=== PATIENT | female | born 1995 | race Caucasian/White ===

== ENCOUNTER → 2024-12-04 07:05 | Outpatient (REF) | payer BC, SELFPAY | LOC: PNTC 07:05 | PROVIDERS: ATTENDING PHYSICIAN Obstetrics & Gynecology | DX: O99.210 Obesity complicating pregnancy, unspecified trimester (principal) | CPT/HCPCS: 76805 ==

== ENCOUNTER → 2025-01-01 09:30 | Outpatient (REF) | payer BC, SELFPAY | LOC: PNTC 09:30 | PROVIDERS: ATTENDING PHYSICIAN Obstetrics & Gynecology | DX: O99.210 Obesity complicating pregnancy, unspecified trimester (principal); O34.211 Maternal care for low transverse scar from previous cesarean delivery | CPT/HCPCS: 76811; 76817; 93976 ==

== ENCOUNTER → 2025-02-19 11:36 | Outpatient (REF) | payer BC, SELFPAY | LOC: PNTC 11:36 | PROVIDERS: ATTENDING PHYSICIAN Obstetrics & Gynecology | DX: O99.212 Obesity complicating pregnancy, second trimester (principal) | CPT/HCPCS: 76816 ==

== ENCOUNTER 2025-03-16 15:45 | Observation (INO) | payer BC, SELFPAY ==
[2025-03-16 16:00] VITALS: BP 121/67; BMI 35.9
[2025-03-16 16:15] LABS: % Basophils 0.2 % (0-2); % Eosinophils 0.8 % (0-6); % Immature Granulocytes 0.5 % (0-0.5); % Lymphocytes 15.3 % (20.5-51.1); % Monocytes 5.8 % (1.7-9.3); % Neutrophils 77.4 % (42.2-75.2); Absolute Eosinophils 0.1 10^3/uL (0-0.7); Absolute Immature Granulocytes 0.1 10^3/uL (0-0.05); Absolute Monocytes 0.8 10^3/uL (0.1-0.6); Hematocrit 31.8 % (37.0-47.0); Mean Corp Hgb Conc. 34.6 g/dL (33.0-37.0); Mean Corpuscular Hgb 31.3 pg (27.0-31.0); Mean Corpuscular Volume 90.6 fL (81.0-99.0); Nucleated Red Blood Cells % 0 %; Platelet Count 315 10^3/uL (130-400); Red Blood Cell Count 3.51 10^6/uL (4.20-5.40); Red Cell Dist. Width 13.2 % (11.5-14.5); White Blood Cell Count 12.9 10^3/uL (4.8-10.8)
[2025-03-16 16:23] LABS: Urine Albumin Negative (Neg - Trace); Urine Bilirubin Negative (Negative); Urine Character Clear (Clear); Urine Glucose Negative (Negative); Urine Ketone Negative (Negative); Urine Nitrite Negative (Negative); Urine Occult Blood Negative (Negative); Urine Specific Gravity 1.005 (<1.030); Urine Urobilinogen Negative (Neg - 1+)
[2025-03-16 16:27] LABS: Urine Color Straw; Urine Leukocyte Negative (Negative)
[2025-03-16 16:28] LABS: ALT (SGPT) 11 U/L (0-35); AST (SGOT) 14 U/L (14-36); Albumin 3.6 g/dl (3.5-5.0); Alkaline Phosphatase 72 U/L (38-126); Blood Urea Nitrogen 8 mg/dl (7-17); Calcium 8.6 mg/dl (8.4-10.2); Carbon Dioxide 19 mmol/L (22-30); Chloride 111 mmol/L (98-107); Estimated Creatinine Clearance > 125 ml/min; Glucose 87 mg/dl (70-99); Potassium 4.2 mmol/L (3.5-5.1); Sodium 134 mmol/L (135-145); Total Bilirubin 0.4 mg/dl (0.2-1.3); Total Protein 6.5 g/dl (6.3-8.2); eGFR > 60.00
[2025-03-16 16:39] LABS: Protein/creatinine Ratio 1.6; Urine Protein 15 mg/dl
[2025-03-16] MEDS: MAXALT MLT (ORALLY DISINTEGRATING) 10 MG PO (18:17)
== END 2025-03-16 19:37 | disposition home or self-care (01) ==
LOC: LDRP 15:45
PROVIDERS: ADMITTING PHYSICIAN Obstetrics & Gynecology; FAMILY PHYSICIAN Family Medicine
DX: O26.893 Other specified pregnancy related conditions, third trimester (principal); H53.8 Other visual disturbances; Z3A.30 30 weeks gestation of pregnancy; R51.9 Headache, unspecified
CPT/HCPCS: 80053; 81003; 82570; 84156; 84550; 85025; 86850; 86900; 86901; G0378

== ENCOUNTER → 2025-03-26 11:27 | Outpatient (REF) | payer BC, SELFPAY | LOC: PNTC 11:27 | PROVIDERS: ATTENDING PHYSICIAN Obstetrics & Gynecology | DX: O99.213 Obesity complicating pregnancy, third trimester (principal) | CPT/HCPCS: 76816 ==

== ENCOUNTER → 2025-03-26 15:03 | Outpatient (REF) | payer BC, SELFPAY ==
--- NOTE | 2025-03-26 08:37 | PN.DIAED06 ---
Meal Plan - Gestational
- Breakfast
Gestational Diabetes Meal Plan Name: 1800 calories
Breakfast - Total Carbohydrate (grams): 30 (1 carb = 15 grams)
Breakfast - Starch Carbohydrate: 1 (carbs: starch, fruit, milk)
Breakfast - Fruit Carbohydrate: 0 (no fruit or juice before noon)
Breakfast - Milk Carbohydrate: 1
Breakfast - Nonstarchy Vegetables: Yes
Breakfast - Meat/Protein: 1 (1 protein serving = 1 oz = 7 grams)
Breakfast - Fat: 2 (1 fat serving = 5 grams)
- Morning Snack
Morning Snack - Total Carbohydrate (grams): 30 (2 carb choices)
Morning Snack - Starch Carbohydrate: 1
Morning Snack - Fruit Carbohydrate: 0 (no fruit or juice before noon)
Morning Snack - Milk Carbohydrate: 1
Morning Snack - Nonstarchy Vegetables: Yes
Morning Snack - Meat/Protein: 0.5
Morning Snack - Fat: 0
- Lunch
Lunch - Total Carbohydrate (grams): 45 (3 carb choices)
Lunch - Starch Carbohydrate: 2
Lunch - Fruit Carbohydrate: 1
Lunch - Milk Carbohydrate: 0
Lunch - Nonstarchy Vegetables: Yes
Lunch - Meat/Protein: 2
Lunch - Fat: 1
- Afternoon Snack
Afternoon Snack - Total Carbohydrate (grams): 30 (2 carb choices)
Afternoon Snack - Starch Carbohydrate: 1
Afternoon Snack - Fruit Carbohydrate: 1
Afternoon Snack - Milk Carbohydrate: 0
Afternoon Snack - Nonstarchy Vegetables: Yes
Afternoon Snack - Meat/Protein: 1
Afternoon Snack - Fat: 0
- Dinner
Dinner - Total Carbohydrate (grams): 45 (3 carb choices)
Dinner - Starch Carbohydrate: 2
Dinner - Fruit Carbohydrate: 0
Dinner - Milk Carbohydrate: 1
Dinner - Nonstarchy Vegetables: Yes
Dinner - Meat/Protein: 2
Dinner - Fat: 2
- Evening Snack
Evening Snack - Total Carbohydrate (grams): 30 (2 carb choices)
Evening Snack - Starch Carbohydrate: 1
Evening Snack - Fruit Carbohydrate: 0
Evening Snack - Milk Carbohydrate: 1
Evening Snack - Nonstarchy Vegetables: Yes
Evening Snack - Meat/Protein: 1
Evening Snack - Fat: 1
--- NOTE | 2025-03-26 14:38 | PN.DE ---
Diabetes Education
- -
03/26/2025 GESTATIONAL DIABETES EDUCATION CONSULT
I met with Salud and her today for medical nutrition therapy. She is currently at 30 weeks of gestation, with an Lorne 05/21/2025 and a scheduled on 05/14/2025.
Explained glucose metabolism in body and what occurs during to cause increase blood sugar. Discussed importance of keeping BS well controlled to avoid complications to the baby during and after (macrosomia, hypoglycemia).
Discussed macronutrients, provided with 1800 chinyere GDM meal plan.She is not currently exercising, I educated on importance of exercise in helping to lower glucose.
Salud presented to the appointment with a new Glucose monitor- [employer] Verio Flex with supplies. Reviewed proper testing technique, testing sites and testing pattern. She is aware to test FBS and 2 hr pp each meal. Expected results for FBS <95
mg/dl and 2 hr pp <120 mg/dl. Noted for blood sugar of 85 mg/dL 2 hours post prandial after breakfast this morning. Log sheet provided for her to record results, she will send a 4-day meal log with all her FBG and 2hr Post prandial glucose numbers
to this office for review. In addition, she will send all her glucose readings [facility] every Monday.
She was encouraged to reach out should she require insulin.
== END ==
LOC: DES 15:03
PROVIDERS: ATTENDING PHYSICIAN Obstetrics & Gynecology
DX: O24.419 Gestational diabetes mellitus in pregnancy, unspecified control (principal)
CPT/HCPCS: 99078

== ENCOUNTER → 2025-04-16 14:31 | Outpatient (REF) | payer BC, SELFPAY | LOC: PNTC 14:31 | PROVIDERS: ATTENDING PHYSICIAN Student in an Organized Health Care Education/Training Program | DX: O24.419 Gestational diabetes mellitus in pregnancy, unspecified control (principal); O99.210 Obesity complicating pregnancy, unspecified trimester | CPT/HCPCS: 59025; 76815 ==

== ENCOUNTER → 2025-04-22 11:30 | Outpatient (REF) | payer BC, SELFPAY | LOC: PNTC 11:30 | PROVIDERS: ATTENDING PHYSICIAN Student in an Organized Health Care Education/Training Program; OTHER PHYSICIAN Obstetrics & Gynecology | DX: O24.419 Gestational diabetes mellitus in pregnancy, unspecified control (principal) | CPT/HCPCS: 59025; 76816 ==

== ENCOUNTER → 2025-04-29 09:29 | Outpatient (REF) | payer BC, SELFPAY | LOC: PNTC 09:29 | PROVIDERS: ATTENDING PHYSICIAN Student in an Organized Health Care Education/Training Program | DX: O99.210 Obesity complicating pregnancy, unspecified trimester (principal); O24.419 Gestational diabetes mellitus in pregnancy, unspecified control | CPT/HCPCS: 59025; 76815 ==

== ENCOUNTER → 2025-05-06 09:27 | Outpatient (REF) | payer BC, SELFPAY | LOC: PNTC 09:27 | PROVIDERS: ATTENDING PHYSICIAN Student in an Organized Health Care Education/Training Program | DX: O99.210 Obesity complicating pregnancy, unspecified trimester (principal); O24.419 Gestational diabetes mellitus in pregnancy, unspecified control | CPT/HCPCS: 59025; 76815 ==

== ENCOUNTER → 2025-05-13 09:31 | Outpatient (REF) | payer BC, SELFPAY | LOC: PNTC 09:31 | PROVIDERS: ATTENDING PHYSICIAN Student in an Organized Health Care Education/Training Program | DX: O24.419 Gestational diabetes mellitus in pregnancy, unspecified control (principal); O99.210 Obesity complicating pregnancy, unspecified trimester | CPT/HCPCS: 59025; 76815 ==

== ENCOUNTER 2025-05-14 06:59 | Inpatient (IN) | payer BC, SELFPAY ==
[2025-05-14 07:49] LABS: Hematocrit 31.1 % (37.0-47.0); Hemoglobin 10.4 g/dL (12.0-16.0); Mean Corp Hgb Conc. 33.4 g/dL (33.0-37.0); Mean Corpuscular Volume 90.1 fL (81.0-99.0); Platelet Count 316 10^3/uL (130-400); Red Cell Dist. Width 13.2 % (11.5-14.5)
[2025-05-14 07:54] VITALS: BP 130/78; BMI 37.6
[2025-05-14] MEDS: LR 1000 IV ×2 (08:00→08:45)
[2025-05-14 08:04] LABS: ALT (SGPT) < 10 U/L (0-35); AST (SGOT) 14 U/L (14-36); Albumin 3.4 g/dl (3.5-5.0); Alkaline Phosphatase 127 U/L (38-126); Blood Urea Nitrogen 9 mg/dl (7-17); Calcium 8.6 mg/dl (8.4-10.2); Carbon Dioxide 19 mmol/L (22-30); Chloride 110 mmol/L (98-107); Estimated Creatinine Clearance > 125 ml/min; Glucose 85 mg/dl (70-99); Potassium 4.2 mmol/L (3.5-5.1); Sodium 135 mmol/L (135-145); Total Protein 6.3 g/dl (6.3-8.2); eGFR > 60.00
[2025-05-14] MEDS: GENTAMICIN 60 MG IV (11:02)
[2025-05-14] MEDS: BICITRA 30 ML PO (11:02)
[2025-05-14] MEDS: TYLENOL 975 MG PO (11:03)
[2025-05-14] MEDS: CLEOCIN 50 IV (11:03)
[2025-05-14] MEDS: TORADOL 15 MG IV ×2 (18:05→23:46)
[2025-05-14] MEDS: COLACE 100 MG PO (19:53)
--- NOTE | 2025-05-14 19:58 | OR.RPT ---
Operative Report
Operative Report
Procedure date: 05/14/2025
Preop diagnosis: IUP @39.0, GDMA1, Hx C/Sx1, declines TOLAC
Postop diagnosis: same
Procedure: Repeat low transverse section
Surgeon: Peter
Anesthesia: Spinal, Bharath
QBL: 220mL
Findings: viable male born at 1143 with nuchal x1, reduced, Apgars 8/9, normal appearing uterus, bilateral fallopian tubes and ovaries, uterine atony responded to methergine
Indications: Patient is a 30yo @39.0 who presents for scheduled repeat section. She has a history of one prior section and desired repeat section. She declined a trial of labor after section. Risks, benefits and
alternatives discussed and consents were previously signed in the office.
Procedure: Patient was taken to the operating room where spinal anesthesia was administered and found to be adequate. 900mg of Clindamycin and 5mg/kg of Gentamicin were given for antibiotic prophylaxis. The abdomen was prepped with ChloraPrep. The
patient was draped in the normal sterile fashion. She was placed in the dorsal supine position with a left lateral tilt. A Pfannenstiel incision was made with a 10 blade and carried down to the fascia with a scalpel. Hemostasis achieved with Bovie.
The fascia was incised and dissected laterally with Schulz scissors. The superior aspect of the fascia was grasped with Rosa clamps. The underlying rectus fascia was sharply dissected with Schulz scissors. In a similar fashion the inferior aspect of
the fascia was elevated with Rosa clamps and the rectus muscle was dissected off with Schulz scissors. The rectus muscles were down the midline to the level of the pubic symphysis with manual dissection. The peritoneum was bluntly entered
and extended using manual traction.
Zhang retractor and bladder blade were placed revealing good visualization of the bladder. The vesicouterine peritoneum was identified. A thin lower uterine segment was noted. The lower uterine segment was incised with a scalpel. Clear amniotic
fluid noted at entry. The uterine incision was extended bluntly with lateral and upward traction.
The fetus was in cephalic presentation. The head was elevated out of the pelvis with special attention paid to avoid using the uterine incision as a fulcrum. Gentle fundal pressure was applied once the head was brought to the incision. The head
delivered through the hysterotomy. There was a loose nuchal x1 that was reduced at the hysterotomy. The rest of the delivered without difficulty. Delayed cord clamping was performed. The infant was handed off to the residential concierge. IV oxytocin
was started to facilitate uterine contractions. The placenta was delivered with fundal massage and gentle downward traction. The uterus was exteriorized. Allis clamps were placed at the apices of the hysterotomy. The inside of the uterus was wiped
with a lap sponge to assure complete removal of placental membranes. Fundal massage was performed and uterus was boggy. Methergine was given with improvement in tone. The uterine incision was closed with 0 Vicryl in a running locked fashion. A
horizontal imbricating stitch was done on the hysterotomy with 0 Vicryl. The hysterotomy was inspected and there was oozing at the right corner. Figure of eights with 2-0 Vicryl were used to achieve hemostasis. Bovie cautery was used on small oozing
areas of the serosa. The uterus was placed back in the abdomen. Blood clots and fluid were wiped out of the abdomen and pelvis with moist laparotomy sponges. The hysterotomy was examined and was hemostatic.
The rectus muscles were inspected and were hemostatic. The fascial layer was closed in a running continuous fashion using 0 Vicryl. The subcutaneous tissue was copiously irrigated and any small bleeding vessels were cauterized with Bovie cautery.
The subcutaneous tissue was reapproximated in a running continuous fashion with 2-0 Plain with 2 layers. The skin was closed with 4-0 Vicryl in a subcuticular fashion and covered with skin glue. The patient tolerated the procedure well. All sponge
and instrument counts were correct times two. The patient was taken to the recovery room in stable condition. Ratliff catheter was draining clear urine at the end of the procedure.
[2025-05-14] MEDS: PRENATAL PLUS 1 TABLET PO (21:25)
[2025-05-15] MEDS: TORADOL 15 MG IV ×2 (05:46→11:57)
[2025-05-15 05:48] LABS: Hematocrit 26.5 % (37.0-47.0); Hemoglobin 9.0 g/dL (12.0-16.0); Mean Corp Hgb Conc. 34.0 g/dL (33.0-37.0); Mean Corpuscular Volume 89.8 fL (81.0-99.0); Platelet Count 289 10^3/uL (130-400); Red Cell Dist. Width 13.2 % (11.5-14.5)
--- NOTE | 2025-05-15 08:27 | W.PN.ANS.POP ---
Anesthesia Post Operative
- Anesthesia Post Op Note
Vital Signs Stable-See Nursing Note: Yes
Airway Patent: Yes
Adequate Pain Control: Yes
Change in Mental Status: No
Current Postoperative Nausea & Vomiting: No
Anesthesia Complications: No
General Anesthetic Recall: No
Unplanned Admission: No
Post Op Hydration Adequate: Yes
- -
Pt awake and alert, resting comfortably with no anesthesia related c/o at time of post op visit.
[2025-05-15] MEDS: MYLICON 80 MG PO (09:43)
[2025-05-15] MEDS: PRENATAL PLUS 1 TABLET PO (09:43)
[2025-05-15] MEDS: COLACE 100 MG PO ×2 (09:43→19:41)
[2025-05-15] MEDS: TYLENOL 650 MG PO (19:21)
[2025-05-15] MEDS: MOTRIN 600 MG PO (19:21)
[2025-05-15] MEDS: FEOSOL 325 MG PO (19:41)
[2025-05-16] MEDS: MOTRIN 600 MG PO ×4 (01:32→20:47)
[2025-05-16] MEDS: TYLENOL 650 MG PO ×4 (01:32→20:47)
[2025-05-16] MEDS: FEOSOL 325 MG PO (08:43)
[2025-05-16] MEDS: COLACE 100 MG PO ×2 (08:43→20:47)
[2025-05-16 13:55] LABS: Syphilis/T. pallidum Ab Reflex Negative (Negative)
[2025-05-17] MEDS: PRENATAL PLUS PO (03:22)
[2025-05-17] MEDS: TYLENOL 650 MG PO ×2 (04:24→08:48)
[2025-05-17] MEDS: MOTRIN 600 MG PO (04:24)
[2025-05-17] MEDS: PRENATAL PLUS 1 TABLET PO (08:48)
[2025-05-17] MEDS: COLACE 100 MG PO (08:48)
[2025-05-17] MEDS: FEOSOL 325 MG PO (08:49)
[2025-05-17] MEDS: M-M-R II 0.5 ML SC (09:29)
--- NOTE | 2025-05-19 05:08 | W.DS.TRANS ---
DC Summary - Electrical Project Engineer
-
Discharge Instructions:
Discharge Diagnosis/Procedures repeat section
Diet No restrictions
Activity No strenuous activity
Driving Restrictions No driving for 2 weeks
Bathing Restrictions OK to Shower
Instructions:
Stand-Alone Forms: LDRP Delivery
Changes to Home Medications: No
Discharge Medications:
DC Medications w/original date entered in [facility]
vit no.95-ferrous fumarate 28 mg-folic acid 800 mcg tablet () 1 ea PO HS Supplement 03/08/21
acetaminophen 325 mg tablet 650 mg (2 x 325 mg) PO Q4HPRN PRN mild pain #1 tab 05/17/25
ferrous sulfate 325 mg (65 mg iron) tablet (FeroSul) 325 mg PO BID #1 tab 05/17/25
ibuprofen 600 mg tablet 600 mg PO Q6HPRN PRN cramps #60 tabs 05/17/25
Home Medication Changes
Pending Results: No
--- NOTE | 2025-05-19 05:08 | W.DCSUMMARY ---
Discharge Summary
Discharge Data
Date of Admission: 05/14/25
Date of Discharge: 05/17/25
-
Pending Results: No
Hospital Course
Patient is a 30yo who presented at 39.0 weeks on 05/14 for scheduled repeat section. She has a history of one prior section for arrest of descent and desired repeat section. She declined a trial of labor after
section. She underwent repeat low transverse section on 05/14, delivering a viable male . The procedure was uncomplicated. The estimated blood loss was 220mL. On postop day one, she was doing well with no complaints. Her
hemoglobin was 9.0. She was asymptomatic for anemia. She was started on an iron supplementation. On postop day two, she continued to do well with no complaints. On postop day three, she was meeting all postop milestones. She was tolerating a regular
diet, voiding spontaneously, passing flatus, ambulating and had no heavy lochia. She was discharged home after discharge instructions and return precautions were discussed. She was instructed to follow up in 2 weeks for an incision check.
Discharge Plan
-
Patient Disposition: Home (Routine Discharge)
Discharge Diagnosis/Procedures: repeat section
Condition: Good
Diet: No restrictions
Activity: No strenuous activity
Driving Restrictions: No driving for 2 weeks
Bathing Restrictions: OK to Shower
Stand Alone Forms: LDRP Delivery
Referrals:
Sue Castro DO [Family Provider, Family Practice]
Claire Green DO [Active, Gynecology] - in two weeks
Prescriptions:
New
acetaminophen 325 mg Tablet
650 mg PO Q4HPRN PRN (Reason: mild pain) Qty: 1 0RF
ferrous sulfate [FeroSul] 325 mg (65 mg iron) Tablet
325 mg PO BID Qty: 1 0RF
ibuprofen 600 mg Tablet
600 mg PO Q6HPRN PRN (Reason: cramps) Qty: 60 0RF
Continued
PNV no.95-ferrous fumarate-FA [] 1 EACH tablet
1 ea PO HS
Discharge Orders:
Discharge Patient (As Directed); Ordered 05/17/25
Ordered By: Claire Green
Discharge Date and Time
Discharge Date/Time: 05/17/25 10:39
Print Language: GUATEMALAN
== END 2025-05-17 10:39 | disposition home or self-care (01) | DRG 787 ==
LOC: LDRP 06:59
PROVIDERS: ADMITTING PHYSICIAN Student in an Organized Health Care Education/Training Program; FAMILY PHYSICIAN Family Medicine
PROC: 4A1HXCZ Monitoring of Products of Conception, Cardiac Rate, External Approach (ICD-10-PCS; 2025-05-14)
PROC: 10D00Z1 Extraction of Products of Conception, Low, Open Approach (ICD-10-PCS; 2025-05-14)
PROC: 3E0134Z Introduction of Serum, Toxoid and Vaccine into Subcutaneous Tissue, Percutaneous Approach (ICD-10-PCS; 2025-05-17)
DX: O34.211 Maternal care for low transverse scar from previous cesarean delivery (principal); O99.354 Diseases of the nervous system complicating childbirth; O99.824 Streptococcus B carrier state complicating childbirth; O62.2 Other uterine inertia; O24.420 Gestational diabetes mellitus in childbirth, diet controlled; G43.109 Migraine with aura, not intractable, without status migrainosus; O69.81X0 Labor and delivery complicated by cord around neck, without compression, not applicable or unspecified; O99.214 Obesity complicating childbirth; Z37.0 Single live birth; Z3A.39 39 weeks gestation of pregnancy; Z88.0 Allergy status to penicillin; Z88.2 Allergy status to sulfonamides; O90.81 Anemia of the puerperium; Z23 Encounter for immunization
CPT/HCPCS: 36415; 80053; 85027; 86780; 86850; 86900; 86901; 90707